=== PATIENT | male | born 1955 | race Caucasian/White ===

== ENCOUNTER 2017-08-07 09:27 | Day surgery (SDC) | payer BC ==
[2017-08-06 14:32] VITALS: BMI 19.0
[2017-08-07] MEDS ORDERED: Propofol 10 mg/ml Inj (20 ML) ONE (11:20)
[2017-08-07] MEDS ORDERED: Simethicone 40 mg/0.6 ml Liquid (30 ml) ONE (11:33)
[2017-08-07] MEDS ORDERED: Lactated Ringer's 1,000 ML IV ONE (12:35)
[2017-08-07 13:27] VITALS: BP 122/69; PULSE 51; RESP 16; TEMP 97.9; O2SAT 98
== END 2017-08-07 13:00 | disposition home or self-care (01) ==
LOC: C.ENDO 09:27
PROVIDERS: ATTEND Internal Medicine Gastroenterology
DX: R10.13 Epigastric pain (principal); Z12.11 Encounter for screening for malignant neoplasm of colon; D12.2 Benign neoplasm of ascending colon; K21.0 Gastro-esophageal reflux disease with esophagitis; K29.70 Gastritis, unspecified, without bleeding; K57.30 Diverticulosis of large intestine without perforation or abscess without bleeding
CPT/HCPCS: 43239; 45384; 88305; J2001; J2704; J3010; J7120